=== PATIENT | male | born 1960 | race Caucasian/White ===

== ENCOUNTER 2017-05-10 14:57 | Inpatient (IN) | payer OTHER ==
[~2017-05-10] VITALS: Ht 180.3 cm; Wt 87.7 kg
[~2017-05-10 14:57] MED LIST: CARVEDILOL25 MG PO; CORDARONE200 MG PO; DEMADEX20 MG PO; LOSARTAN POTASS50 MG PO; NEOSPORIN1 APPLICAT RIGHT EYE; SPIRONOLACTONE25 MG PO
[2017-05-10 15:29] LABS: CREATININE 2.5 mg/dL (0.6-1.3); POTASSIUM 4.3 mEq/L (3.7-5.4)
[2017-05-10 15:29] LABS: CREATININE 2.5 mg/dL (0.6-1.3); POTASSIUM 4.3 mEq/L (3.7-5.4)
[2017-05-10 15:52] LABS: HEMATOCRIT 42.4 % (38.0-50.0); MCH 24.9 PG (29.0-34.0); MCHC 30.2 G/DL (30.0-36.0); MCV 82.5 FL (86-99); MEAN PLAT.VOLUME 10.7 uM^3 (9.0-12.4); NRBC (%) 0.4 /100 WBC (0-0); PLATELET COUNT 259 K/uL (156-360); RBC DIS.WIDTH-CV 21.3 % (11.8-14.6); RBC DIS.WIDTH-SD 59.7 % (39-53); RED BLOOD COUNT 5.14 M/uL (4.00-5.50); WHITE BLOOD COUNT 11.4 K/uL (4.1-10.2)
[2017-05-10 15:55] LABS: CARBON DIOXIDE (BICARBONATE) 17.1 MEQ/L (20-31)
[2017-05-10 16:03] LABS: CHLORIDE 95 mEq/L (99-109); POTASSIUM 4.4 mEq/L (3.7-5.4); SODIUM 134 mEq/L (136-147)
[2017-05-10 16:06] LABS: GLUCOSE 55 mg/dL (70-99)
[2017-05-10 16:07] LABS: ANION GAP 25 MEQ/L (2-14)
[2017-05-10 16:08] LABS: TOTAL BILIRUBIN 5.5 mg/dL (0.0-1.0)
[2017-05-10 16:08] LABS: CARBOXY HGB 2.2 % (0-5); METHEMOGLOBIN 0.6 % (0-1.5); PCO2 < 20 mm Hg (35-45); PO2 135 mm Hg (80-100); pH 7.34 (7.35-7.45)
[2017-05-10 16:09] LABS: ALKALINE PHOSPHATASE 116 IU/L (3-129)
[2017-05-10 16:09] LABS: COMMENTS - BLOOD GASES A+C+; DEVICE NC; O2 FLOW 6 L/MIN; SITE RR; TOTAL RESP RATE 24 resp/min
[2017-05-10 16:10] LABS: GFR ESTIMATE (CALCULATED) 29 mL/min/
[2017-05-10 16:11] LABS: UREA NITROGEN (BUN) 47 mg/dL (9-23)
[2017-05-10 16:12] LABS: TROP-I INTERPRETATION NEGATIVE; TROPONIN-I 0.19 ng/mL (0.0-0.30)
[2017-05-10 16:13] LABS: LIPASE 7 U/L (1.0-51.0)
[2017-05-10 17:04] LABS: POINT-OF-CARE METER ID UU13113747
[2017-05-10 17:10] LABS: GLUCOSE 101 mg/dL (70-99)
[2017-05-10 17:36] LABS: INTER. NORMALIZED RATIO 3.1
[2017-05-10 17:38] LABS: PTT 37.1 SEC (25-37)
[2017-05-10 17:55] LABS: ADD MIUA? YES; BILIRUBIN MODERATE; BLOOD SMALL; COLOR AMBER ((YELLOW)); GLUCOSE (STRIP) NEGATIVE; KETONES NEGATIVE; LEUKOCYTES NEGATIVE; NITRITE NEGATIVE; PROTEIN (STRIP) 30; SPECIFIC GRAVITY 1.019 (1.000-1.030)
[2017-05-10 18:09] LABS: BACTERIA 2+ /HPF; EPITHELIAL CELLS RARE /HPF; HYALINE CASTS TNTC /LPF; MUCUS NONE SEEN /LPF; UCUL ADDED? YES; WHITE BLOOD CELLS 0-5 /HPF (0-5)
[2017-05-10 18:26] LABS: ICTOTEST POSITIVE
[2017-05-10] MEDS ORDERED: ELIQUIS5 MG PO (19:43)
[2017-05-10] MEDS ORDERED: K-DUR10 MEQ PO (19:44)
[2017-05-10] MEDS ORDERED: BUMEX2 MG PO (19:54)
[2017-05-10 20:54] LABS: POINT-OF-CARE METER ID UU13113747
[2017-05-10 21:45] VITALS: BP 102/75
[2017-05-10 21:46] VITALS: BP 102/75
[2017-05-10 22:00] VITALS: BP 104/74
[2017-05-10 23:00] VITALS: BP 108/66
[2017-05-10 23:39] LABS: METH RESISTANT S AUREUS PCR NEGATIVE (NEGATIVE)
[2017-05-10 23:43] LABS: PROBE CHECK PASS; SPECIMEN PROCESSING CONTROL PASS
[2017-05-11] VITALS (24 sets, daily range): BP systolic 0–140; BP diastolic 0–101
[2017-05-11 04:28] LABS: EOSINOPHIL (%) 0 % (0-5); HEMATOCRIT 39.1 % (38.0-50.0); IMMATURE GRANULOCYTE (%) 0.6 % (0.0-0.7); IMMATURE GRANULOCYTE COUNT 0.1 K/uL; LYMPHOCYTE COUNT 1.5 K/uL (1.0-2.8); MCH 24.7 PG (29.0-34.0); MCHC 31.2 G/DL (30.0-36.0); MCV 79.1 FL (86-99); MEAN PLAT.VOLUME 10.1 uM^3 (9.0-12.4); MONOCYTE COUNT 0.5 K/uL (0-0.8); NEUTROPHIL (%) 79.1 % (45-76); NRBC (%) 0.3 /100 WBC (0-0); PLATELET COUNT 254 K/uL (156-360); RBC DIS.WIDTH-CV 21.2 % (11.8-14.6); RBC DIS.WIDTH-SD 57.8 % (39-53); RED BLOOD COUNT 4.94 M/uL (4.00-5.50); WHITE BLOOD COUNT 10.1 K/uL (4.1-10.2)
[2017-05-11 08:43] LABS: POINT-OF-CARE METER ID UU13113747
[2017-05-11] MEDS ORDERED: AMIODARONE HCL100 MG PO (09:36)
[2017-05-11] MEDS ORDERED: ELIQUIS2.5 MG PO (09:36)
[2017-05-12] VITALS (32 sets, daily range): BP systolic 76–139; BP diastolic 51–88
[2017-05-12 09:02] LABS: ALKALINE PHOSPHATASE 91 IU/L (3-129); ANION GAP 18 MEQ/L (2-14); CHLORIDE 104 MEQ/L (99-109); DIRECT BILIRUBIN 4.5 mg/dL (0.0-0.3); POTASSIUM 4.6 MEQ/L (3.7-5.4); SAMPLE HEMOLYSIS CHECK 0; SAMPLE ICTERIC CHECK 2; SAMPLE LIPEMIA CHECK 0; SODIUM 138 MEQ/L (136-147); UREA NITROGEN (BUN) 54 mg/dL (9-23)
[2017-05-12 09:06] LABS: GFR ESTIMATE (CALCULATED) 42 mL/min/; GLUCOSE 59 mg/dL (70-99)
[2017-05-12 14:42] LABS: PROTHROMBIN TIME 58.7 SEC (10.2-12.9); PTT 46.6 SEC (25-37)
[2017-05-12 14:43] LABS: INTER. NORMALIZED RATIO 5.1
[2017-05-13] VITALS (30 sets, daily range): BP systolic 63–90; BP diastolic 39–67
[2017-05-13 08:00] LABS: BASE EXCESS -9.4 mEq/L (-3 to +3); BICARBONATE 13.6 mEq/L (22-26); CARBOXY HGB 2.5 % (0-5); METHEMOGLOBIN 1.2 % (0-1.5); PCO2 22 mm Hg (35-45)
[2017-05-13 08:01] LABS: COMMENTS - BLOOD GASES A+C+; DEVICE ROOM AIR; FI02 0.21 %; PO2 80 mm Hg (80-100); SITE RR; TOTAL RESP RATE 30 resp/min
[2017-05-13 09:07] LABS: EOSINOPHIL (%) 0.1 % (0-5); HEMATOCRIT 38.7 % (38.0-50.0); IMMATURE GRANULOCYTE (%) 0.9 % (0.0-0.7); IMMATURE GRANULOCYTE COUNT 0.1 K/uL; INSTRUMENT ABS NEUTROPHIL CT 6.6 K/uL; LYMPHOCYTE COUNT 1.5 K/uL (1.0-2.8); MCH 25.3 PG (29.0-34.0); MCV 81.5 FL (86-99); MEAN PLAT.VOLUME 10.2 uM^3 (9.0-12.4); MONOCYTE (%) 4.1 % (3-12); MONOCYTE COUNT 0.4 K/uL (0-0.8); NEUTROPHIL (%) 77.4 % (45-76); NEUTROPHIL COUNT 6.6 K/uL (1.8-6.4); NRBC (%) 0.7 /100 WBC (0-0); PLATELET COUNT 205 K/uL (156-360); RBC DIS.WIDTH-CV 21.2 % (11.8-14.6); RBC DIS.WIDTH-SD 59.4 % (39-53); RED BLOOD COUNT 4.75 M/uL (4.00-5.50); WHITE BLOOD COUNT 8.5 K/uL (4.1-10.2)
[2017-05-13 09:37] LABS: ALKALINE PHOSPHATASE 81 IU/L (3-129); ANION GAP 21 MEQ/L (2-14); CHLORIDE 105 MEQ/L (99-109); GFR ESTIMATE (CALCULATED) 45 mL/min/; GLUCOSE 65 mg/dL (70-99); SAMPLE HEMOLYSIS CHECK 0; SAMPLE ICTERIC CHECK 2; SAMPLE LIPEMIA CHECK 0; SODIUM 138 MEQ/L (136-147); UREA NITROGEN (BUN) 66 mg/dL (9-23)
[2017-05-13 15:36] LABS: ANION GAP 21 MEQ/L (2-14); CHLORIDE 104 MEQ/L (99-109); GFR ESTIMATE (CALCULATED) 35 mL/min/; GLUCOSE 49 mg/dL (70-99); SAMPLE HEMOLYSIS CHECK 0; SAMPLE ICTERIC CHECK 2; SAMPLE LIPEMIA CHECK 0; SODIUM 138 MEQ/L (136-147); UREA NITROGEN (BUN) 68 mg/dL (9-23)
== END 2017-05-13 18:45 | disposition short-term general hospital (02) | DRG 871 ==
LOC: EME → EDBD 14:57 → EME 14:57 → 4WEST 20:22 → ENRESERV 20:22 → EDOF 20:22 → ENRESERV 20:43 → 4WEST 21:28
PROVIDERS: Emergency Medicine; Internal Medicine Critical Care Medicine; Specialist
DX: A41.9 Sepsis, unspecified organism (principal); R65.20 Severe sepsis without septic shock; J44.0 Chronic obstructive pulmonary disease with (acute) lower respiratory infection; J18.9 Pneumonia, unspecified organism; N17.9 Acute kidney failure, unspecified; N28.0 Ischemia and infarction of kidney; R57.0 Cardiogenic shock; E87.2 Acidosis; B37.0 Candidal stomatitis; I13.0 Hypertensive heart and chronic kidney disease with heart failure and stage 1 through stage 4 chronic kidney disease, or unspecified chronic kidney disease; I50.9 Heart failure, unspecified; N18.9 Chronic kidney disease, unspecified; I42.0 Dilated cardiomyopathy; I44.7 Left bundle-branch block, unspecified; I48.91 Unspecified atrial fibrillation; K74.60 Unspecified cirrhosis of liver; K76.1 Chronic passive congestion of liver; R18.8 Other ascites; K21.9 Gastro-esophageal reflux disease without esophagitis; E78.5 Hyperlipidemia, unspecified; Z66 Do not resuscitate; Z79.01 Long term (current) use of anticoagulants; Z86.711 Personal history of pulmonary embolism; Z87.891 Personal history of nicotine dependence; Z23 Encounter for immunization
CPT/HCPCS: 36600; 71010; 71250; 74176; 80047; 80048; 80048 91; 80053; 80076; 80202; 81003; 82140; 82803; 82948; 83605; 83690; 83880; 84484; 84999; 85025; 85027; 85610; 85730; 87040; 87086; 87641; 90686; 93005; 93306; 99281; 99285; J1940; J2260; J2270; J2543; J3370; J7030; J7040; J7050; J7070; J7120; P9047; S0028